=== PATIENT | male | born 2000 | race Caucasian/White ===

== ENCOUNTER 2023-08-12 10:37 | Outpatient (CLI) | payer OTHER, SELFPAY ==
[2023-08-12 22:26] LABS: Alanine Aminotransferase 19 U/L (12-78); Albumin/Globulin Ratio 1.7 (1.1-1.8); Alkaline Phosphatase 58 U/L (38-126); Anion Gap 7.3 mEq/L (5-15); Aspartate Amino Transferase 24 U/L (17-59); Bilirubin,Total 0.3 mg/dl (0.2-1.3); Blood Urea Nitrogen 14 mg/dl (9-20); Calcium 8.4 mg/dl (8.4-10.2); Carbon Dioxide 28 mmol/L (22.0-30.0); Chloride 106 mmol/L (98-107); Chol/HDL Ratio 2.6 (1-3.5); Cholesterol 95 mg/dl (140-200); Estimated Glomerular Filt Rate 92 ml/min (>60); GFR (African American) 111 ML/MIN (>60); Globulin 2.4 g/dL (1.3-3.2); Glucose 96 mg/dl (74-100); HDL Cholesterol 37 mg/dl (40-60); Potassium 4.3 mmoL/L (3.5-5.1); Sodium 137 mmol/L (136-145); Total Protein,Serum 6.4 g/dl (6.3-8.2); Triglycerides 33 mg/dl (30-150); VLDL Cholesterol 7 mg/dL (0-40)
[2023-08-12 22:37] LABS: Direct LDL Cholesterol 57.31 mg/dL (100-129)
[2023-08-12 22:57] LABS: Thyroid Stimulating Hormone 0.68 uIU/mL (0.465-4.68)
[2023-08-12 23:16] LABS: Vitamin B12 274 pg/mL (239-931)
== END 2023-08-12 23:59 ==
LOC: LAB.DROPOF 08-13 10:37
PROVIDERS: PCP Family Medicine; Visit Provider Family Medicine
DX: R63.4 Abnormal weight loss (principal); E78.5 Hyperlipidemia, unspecified
CPT/HCPCS: 80053; 80061; 82607; 84443

== ENCOUNTER 2023-09-29 19:45 | Outpatient (CLI) | payer OTHER, SELFPAY ==
[2023-10-02 00:10] LABS: Neisseria gonorrhoeae, NAA Negative (Negative)
== END 2023-09-29 23:59 ==
LOC: LAB.DROPOF 19:45
PROVIDERS: PCP Family Medicine; Visit Provider Family Medicine
DX: Z20.2 Contact with and (suspected) exposure to infections with a predominantly sexual mode of transmission (principal)
CPT/HCPCS: 87491; 87591